=== PATIENT | female | born 1930 | race Caucasian/White ===

== ENCOUNTER 2016-12-11 10:32 | Inpatient (IN) ==
--- NOTE | 2016-12-11 11:23 | Diag Imaging Result Doc PS360 ---
EXAM: FLAT/UPRIGHT ABD/1 VIEW CHEST HISTORY: constipation, weakness TECHNIQUE: Three views COMPARISON: 02/27/2016 FINDINGS: The lungs are well expanded. Heart is mildly enlarged. No pneumonia. Prominent atherosclerosis. No free air beneath the diaphragm. No organomegaly. There is stool throughout the colon. Mild scoliosis with degenerative spine changes. Prominent atherosclerosis. IMPRESSION: 1.Mild cardiomegaly 2.Prominent atherosclerosis 3.Mild constipation Electronically signed by Jose Mcneal 12/11/2016 11:20 AM
[2016-12-11 11:56] LABS: MANUAL DIFF NEEDED? NO
[2016-12-11 12:00] LABS: BASO% 0.1 % (0.0-0.8); EOS# 0.05 X1000 (0.0-0.7); EOS% 0.6 % (0.0-10.0); HEMATOCRIT 43.4 % (37.0-47.0); HEMOGLOBIN 15.2 g/dL (12.0-16.0); LYMPH# 1.27 X1000 (1.2-3.4); LYMPH% 15.9 % (20.5-51.1); MCH 31.7 PG (27-31); MCV 90.6 FL (81-99); MONO# 0.87 X1000 (0.11-0.59); MONO% 10.9 % (1.7-9.3); MPV 8.7 FL (7.4-10.4); NEUT% 72.5 % (42.2-75.2); PLT 247 X1000 (130-400); RBC 4.79 XMIL (4.2-5.4)
[2016-12-11 12:08] LABS: URINE CULTURE NEEDED? NO; URINE MICRO REVIEW NEEDED? NO; URINE SOURCE CLEAN CATCH
[2016-12-11 12:14] LABS: BILIRUBIN URINE NEGATIVE (NEGATIVE); BLOOD URINE NEGATIVE (NEGATIVE); COLOR YELLOW; GLUCOSE URINE >1000 mg/dL (NEGATIVE); LEUKOCYTES URINE NEGATIVE (NEGATIVE); NITRITE URINE NEGATIVE (NEGATIVE); PROTEIN URINE NEGATIVE (NEGATIVE); SP GRAVITY URINE 1.011; TURBIDITY URINE CLEAR (CLEAR); UROBILINOGEN URINE NORMAL (NORMAL)
[2016-12-11 12:16] LABS: UR EPITHELIAL CELLS <10 /HPF (<10); URINE BACTERIA NEGATIVE /HPF; URINE RBC <10 /HPF (<10); URINE WBC <10 /HPF (<10)
[2016-12-11 12:31] LABS: SODIUM 119 mmol/L (136-145)
[2016-12-11 12:32] LABS: AGAP 12; ALBUMIN 4.1 g/dL (3.5-5.0); ALKALINE PHOSPHATASE 80 U/L (32-104); BUN 11 mg/dL (8-22); CHLORIDE 80 mmol/L (98-107); COSMO 239; GOT 34 U/L (10-30); GPT 26 U/L (10-36); POTASSIUM 4.7 mmol/L (3.5-5.1); TCO2 27 mmol/L (25-35); TOTAL BILIRUBIN 0.45 mg/dL (0.20-1.00); TOTAL PROTEIN 6.8 g/dL (6.3-8.3)
[2016-12-11] MEDS ORDERED: NS 1,000 ML IV ONE (13:09)
--- NOTE | 2016-12-11 13:14 | PROVIDER DOCUMENTATION ---
This chart was entered by Leatha Krueger Scribe, acting as scribe for Mariluz Méndez PA. HPI-General Adult - General Chief Complaint: General Adult Stated Complaint: SOB/CONSTIPATION Time Seen by Provider: 12/11/16 10:47 Source: patient Allergies/Adverse Reactions: Patient Allergies Allergy/AdvReac Type Severity Reaction Status Date / Time hydrocodone Allergy ANAPHYLAXIS Verified 12/11/16 11:47 rofecoxib [From Vioxx] Allergy ITCHING Verified 12/11/16 11:47 Sulfa (Sulfonamide Allergy HIVES Verified 12/11/16 11:47 Antibiotics) codeine AdvReac Unknown Verified 12/11/16 11:47 SEAFOOD Allergy Unknown Uncoded 12/11/16 11:47 Home Medications: Home Medication List Medication Instructions Recorded Confirmed Last Taken Type ATORVAstatin [Lipitor] 10 mg PO DAILY 09/26/15 12/11/16 12/11/16 History Alprazolam [Xanax] 0.25 mg PO DAILY 09/26/15 12/11/16 12/11/16 History Aspirin 81 mg PO QHS 09/26/15 12/11/16 12/11/16 History Bisoprolol [Zebeta] 5 mg PO DAILY 09/26/15 12/11/16 12/11/16 History Digoxin 250 mcg PO QHS 09/26/15 12/11/16 12/11/16 History Levothyroxine [Synthroid] 125 microgm PO DAILY 09/26/15 12/11/16 12/11/16 History Pentoxifylline 400 mg PO BID 09/26/15 12/11/16 12/11/16 History Ropinirole [Requip] 1 mg PO HS 09/26/15 12/11/16 12/11/16 History Spironolact/Hydrochlorothiazid 0.5 each PO DAILY 09/26/15 12/11/16 12/11/16 History [Spironolactone-Hctz 25-25 Tab] Multivitamin [One-A-Day Essential] 1 each PO DAILY 02/27/16 12/11/16 12/11/16 History Clopidogrel [Plavix] 75 mg PO DAILY #30 tablet 02/28/16 12/11/16 12/11/16 Rx Benzonatate [Tessalon Perle] 100 mg PO DAILY 12/11/16 12/11/16 12/11/16 History Cyclobenzaprine [Flexeril] 10 mg PO HS 12/11/16 12/11/16 12/11/16 History - History of Present Illness -Gen Adult Nature of Presenting Problems: Pt is a 86 year old female who came to the ED with a cc of constipation for 3 days, complaints of feelings of urinary retention, right sided weakness, and not getting oxygen into her right nostril. Pt does admit that about 3-4 days ago she took Lasix as she felt her legs were swelling and her symptoms of weakness and fatigue started after taking the lasix. Pt is prescribed spironolactone and HCTZ. Location of Pain/Injury: reports: none Pain Radiation: reports: no radiation Quality of Pain: reports: none Severity: reports: mild Onset/Duration: reports: 3 days ago Timing: reports: still present Context/Activities at Onset: reports: none Modifying Factors: improves with: nothing Associated Symptoms: reports: constipation, weakness Similar Symptoms Previously?: No Recently seen or treated by another doctor?: No Review of Systems - Adult - REVIEW OF SYSTEMS - ADULT Constitutional: denies: chills, fever Eyes: reports: no symptoms reported Ears, Nose, Mouth & Throat: reports: no symptoms reported Cardiovascular: denies: chest pain, syncope Respiratory: reports: shortness of breath. denies: cough, pleurisy, wheezing Gastrointestinal: reports: constipation. denies: diarrhea, nausea, vomiting Genitourinary: reports: no symptoms reported Musculoskeletal: reports: no symptoms reported Integumentary: reports: no symptoms reported Neurological: reports: numbness. denies: loss of balance, seizure, tremors Psychiatric: reports: no symptoms reported Endocrine: reports: no symptoms reported Hematologic/Lymphatic: reports: no symptoms reported Allergic/Immunologic: reports: no symptoms reported All Other Systems: Reviewed and Negative Past History - Adult - PAST MEDICAL HISTORY-ADULT Review of Records: reports: Old Records Reviewed, Nursing Assessment Review, Medications Reviewed Major Childhood Illnesses: reports: denies history Cardiovascular: reports: HTN, hyperlipidemia Respiratory: reports: denies history Gastrointestinal: reports: denies history Obstetrical/Gynecological: reports: denies history Genitourinary: reports: denies history Musculoskeletal: reports: denies history Neurological: reports: denies history Endocrine/Immune: reports: denies history Other Conditions: reports: denies history - PRIOR SURGERIES/PROCEDURES Surgical/Procedure History: reports: appendectomy, hysterectomy, , hernia repair - IMMUNIZATION STATUS Childhood Immunizations: See Nurse Assessment Flu Vaccine: See Nurse Assessment - FAMILY HISTORY Family History: reviewed, not pertinent Physical Exam-General - PHYSICAL EXAM-ADULT Initial Vital Signs Reviewed: Yes - CONSTITUTIONAL General Appearance: appears well, alert, no apparent distress, thin - EYES Eyes: PERRL/EOMI, pink conjunctivae - HEAD, EARS, NOSE, MOUTH & THROAT HENMT: normocephalic/atraumatic, moist mucous membranes - NECK Neck: non-tender, full range of motion, supple - RESPIRATORY Respiratory: chest non-tender, lungs clear, normal breath sounds. negative: crackles, rales, rhonchi, stridor, wheezing - CARDIOVASCULAR Cardiovascular: regular rate, rhythm, no edema - GASTROINTESTINAL (ABDOMEN) Abdominal Exam: normal bowel sounds, soft, tenderness (generalized). negative: distended, guarding, rigid, rebound, hernia, mass - MUSCULOSKELETAL Back Exam: normal inspection, no CVA tenderness, no vertebral tenderness Extremity: no pedal edema, no calf tenderness, normal capillary refill Peripheral Pulses: dorsalis-pedis (R): 2+, dorsalis-pedis (L): 2+ - SKIN Integumentary: normal color, normal turgor, warm/dry, other (bilateral heals with erythema and tenderness but skin is intact) - NEUROLOGIC Neurologic: grossly normal, no motor/sensory deficits - PSYCHIATRIC Psych/Mental Status: normal mood/affect, normal thought content, normal thought process, oriented x 3 Progress - PLAN OF CARE/RESULTS Progress/Plan/Lab Results: Vital Signs - 8 hr 12/11/16 10:37 Temperature 98.4 F Pulse Rate 70 Respiratory Rate 20 Blood Pressure 171/88 O2 Sat by Pulse Oximetry 100 Orders Category Date Time Status Saline Loc NOW Care 12/11/16 10:57 Active Use Oxygen.Protocol ORDERED Care 12/11/16 10:57 Active FLAT/UPRIGHT ABD/1 VIEW CHEST [RAD] Stat Exams 12/11/16 10:53 Ordered CBC WITH ELECTRONIC DIFF [HEME] Stat Lab 12/11/16 10:53 Uncollected COMPREHENSIVE METABOLIC PANEL [CHEM] Stat Lab 12/11/16 10:53 Uncollected URINALYSIS W/POSS RFLX CULT-1 [URINALYSIS] Stat Lab 12/11/16 10:53 Uncollected Result Diagrams: 12/11/16 11:42 12/11/16 11:42 - EKG 1 Time of EKG reading by physician:: 11:39 EKG Read and Signed by:: Kalani Muhammad EKG Interpretation (*Must complete 3 of following elements*): Normal Rate: 94 Rhythm: NSR - CONSULTS/PCP/HOSPITALIST Notification #1 *Consult/PCP/Hospitalist*: Shana Time Discussed: 12:43 Consult Disposition: Admit Departure - Departure Date of Disposition Decision: 12/11/16 Time of Disposition Decision: 13:13 DIAGNOSIS: Hyponatremia Disposition: ADMITTED INPATIENT 09 Certified Medical Emergency: Emergent Condition: Stable Referrals and Follow-Ups: Lavelle Saldana MD [Primary Care Provider] - Discharge Education: Smoking Cessation, Tips for Success - Critical Care Note This patient required my direct & personal management of CC.: No Attestation - Physician/ ROXY Attestation Patient care was provided by Advanced Practice Provider:: Yes Advanced Practice Provider:: Mariluz Méndez Advanced Practice Provider documentation review:: The Mid-level provider documentation, treatment plan and medical decision making was reviewed by the physician who agrees with all treatment and medical decision making by the MLP. The physician spent face to face time with patient:: No Advanced Practice Provider documentation review:: Supervising physician onsite and consulted in the evaluation and care of this patient. The physician did not have a face to face encounter with the patient. This chart was documented by the indicated scribe, (Leatha Krueger Scribe) and accurately reflects the services I performed and decisions made by me, Mariluz Méndez PA, as attested by the provider's signature.
[2016-12-11] MEDS ORDERED: LASIX IV ONE (14:16)
--- NOTE | 2016-12-11 15:43 | HISTORY AND PHYSICAL ---
CHIEF COMPLAINT: Weakness and constipation. PRESENT ILLNESS: Ms. Orozco is an 86-year-old woman with a long history of chronic atrial fibrillation, essential hypertension, hypothyroidism, COPD, and peripheral artery disease with bilateral carotid obstruction. She was brought to the emergency room today by her son because of a 2-3 day history of progressive weakness and no bowel movement for 2 days. She normally takes some MiraLAX at home, but this has been ineffective. Several days ago, her ankles and feet were puffy and she took one dose of the an old bottle of Lasix. Evaluation here in the emergency room is remarkable for hyponatremia with a serum sodium of 119. Her previous values have been normal. Progress for chemistry profile and CBC and urinalysis are unremarkable. She is accompanied here in the emergency room by her son. They both agree that she has had no nausea, vomiting, diarrhea, or other GI problems other than the constipation. She has been drinking fluid normally. She does have a history of benign glycosuria. PAST MEDICAL HISTORY: Remarkable for essential hypertension, hypothyroidism, COPD with ongoing nicotine use and chronic atrial fibrillation with benign glycosuria and restless leg syndrome. She also has bilateral partial carotid artery obstructions followed by Dr. Marrero. FAMILY HISTORY: Noncontributory. SOCIAL HISTORY: She is a and lives alone, although her son lives close by and visits daily. She has no other children. She smokes 1/2 to 1 pack of cigarettes per day. Uses home oxygen at night and sometimes during the day. She does not use alcohol. REVIEW OF SYSTEMS: General: No fever, chills, night sweats. Her baseline weight is 88 pounds. HEENT: Vision and hearing are adequate without recent changes. She denies any dental problems or difficulty chewing or swallowing. Respiratory: She has moderate dyspnea on exertion with more than sedentary activities, although she is able to move around her house fairly well. She has occasional dry cough with minimal sputum production and no hemoptysis. Cardiovascular: No history of ischemic heart disease. She has chronic atrial fibrillation, but denies palpitations, dizziness, syncope or near syncope. GI: Her appetite is generally fair as usual and says she has adequate food at home. No melena or bright red blood per rectum. : No dysuria, increased frequency of urination or hematuria. Neurologic: She has restless leg syndrome and frequently has possible neuropathic pain in her feet and ankles. No history of strokes or seizures. Musculoskeletal: Chronic arthritic type pain in her knees. PHYSICAL EXAMINATION: VITAL SIGNS: Temperature 98.4 degrees, blood pressure 171/82, pulse 79, respirations 20, O2 saturation 100% on 2 L. GENERAL APPEARANCE: Cachectic, elderly female with moderate temporal wasting, She is alert and oriented and conversational. SKIN: [place] and warm with adequate turgor. The skin over her fingers at MCP joints is reddened with scattered telangiectasias. Her toes are somewhat purplish and cool. Pedal pulses are diminished, but capillary refill is fair and generally intact. HEENT EXAM: No evidence of trauma. Pupils are equal, round, reactive to light. Oropharynx is benign. NECK: Supple with no jugular venous distention, adenopathy, thyromegaly or bruits. LUNGS: Clear to auscultation and percussion, although breath sounds are somewhat distant. CARDIOVASCULAR: There is nearly regular rhythm with variable S1 and S2. Apical rate is 80. No murmurs or gallops are appreciated. ABDOMEN: Soft, scaphoid and nontender with active bowel sounds. There are no palpable masses. EXTREMITIES: Moderate bony swelling of both knees. There is no edema. NEUROLOGIC EXAM: Mental status is normal. Cranial nerve examination is unremarkable. Gait is not tested. DATABASE: Sodium 119, potassium 4.7, BUN 11, creatinine 0.6. Albumin is normal. SGOT is 34. CBC is normal. Urinalysis is unremarkable, except for large glucose. Serum glucose is 87. ASSESSMENT: 1. Hyponatremia, probably due to thiazide diuretic. 2. Weakness, probably secondary to #1. 3. Constipation, mild to moderate according to x-ray. 4. Bilateral carotid disease. 5. Severe chronic obstructive pulmonary disease. 6. Chronic atrial fibrillation. TREATMENT PLAN: We will hold her diuretic and begin IV normal saline 84 mL/hour. She has been given a dose of Lasix and I have scheduled another one for tomorrow. Daily basic metabolic profiles x3. We will discontinue her digoxin and, if she needs better blood pressure control, begin Cardizem CD 240 at bedtime for both rate control and hypertension. Will watch carefully for bradycardia. I expect it to take 2-3 days to correct her serum sodium, so she will require full admission. cc: Lavelle Saldana MD
[2016-12-11] MEDS: VENTOLIN HFA INH PRN (20:55)
[2016-12-11] MEDS: REQUIP PO SCH (22:35)
[2016-12-11] MEDS: TRENTAL PO SCH (22:35)
[2016-12-11] MEDS: CARDIZEM CD PO SCH (22:35)
[2016-12-11] MEDS: LOVENOX SUBQ SCH (22:35)
[2016-12-11] MEDS: XANAX PO SCH (22:36)
[2016-12-11] MEDS: ASPIRIN PO SCH (22:36)
[2016-12-12] MEDS ORDERED: LASIX IV ONE (06:00)
[2016-12-12 07:03] LABS: AGAP 11; BUN 15 mg/dL (8-22); CHLORIDE 87 mmol/L (98-107); COSMO 259; DIGOXIN 0.5 ng/mL (0.9-2.0); POTASSIUM 3.8 mmol/L (3.5-5.1); SODIUM 129 mmol/L (136-145); TCO2 31 mmol/L (25-35)
[2016-12-12] MEDS: TRENTAL PO SCH ×2 (08:34→22:17)
[2016-12-12] MEDS: MIRALAX PO SCH (08:34)
[2016-12-12] MEDS: ZEBETA PO SCH (08:35)
[2016-12-12] MEDS: SYNTHROID PO SCH (08:35)
[2016-12-12] MEDS: LIPITOR PO SCH (08:35)
[2016-12-12] MEDS: PLAVIX PO SCH (08:35)
[2016-12-12] MEDS: VENTOLIN HFA INH PRN (08:55)
[2016-12-12] MEDS ORDERED: COMMIT BUCCAL PRN (09:39)
[2016-12-12] MEDS: HYDROCORTISONE 1% CREAM TOP SCH ×2 (13:49→22:18)
[2016-12-12] MEDS: NS 1,000 ML IV SCH (13:50)
[2016-12-12] MEDS: ASPIRIN PO SCH (22:17)
[2016-12-12] MEDS: XANAX PO SCH (22:17)
[2016-12-12] MEDS: LOVENOX SUBQ SCH (22:17)
[2016-12-12] MEDS: REQUIP PO SCH (22:17)
[2016-12-12] MEDS: CARDIZEM CD PO SCH (22:18)
[2016-12-13] MEDS: NS 1,000 ML IV SCH (00:19)
[2016-12-13] MEDS: TYLENOL PO PRN ×2 (04:47→16:01)
[2016-12-13 06:54] LABS: AGAP 14; BUN 18 mg/dL (8-22); CALCIUM 9.3 mg/dL (8.8-10.2); CHLORIDE 94 mmol/L (98-107); COSMO 273; POTASSIUM 3.7 mmol/L (3.5-5.1); SODIUM 136 mmol/L (136-145); TCO2 28 mmol/L (25-35)
[2016-12-13] MEDS: VENTOLIN HFA INH PRN (08:42)
[2016-12-13] MEDS: MIRALAX PO SCH (09:41)
[2016-12-13] MEDS: ZEBETA PO SCH (09:42)
[2016-12-13] MEDS: TRENTAL PO SCH ×2 (09:42→21:38)
[2016-12-13] MEDS: SYNTHROID PO SCH (09:42)
[2016-12-13] MEDS: PLAVIX PO SCH (09:42)
[2016-12-13] MEDS: LIPITOR PO SCH (09:42)
[2016-12-13] MEDS: HYDROCORTISONE 1% CREAM TOP SCH ×2 (09:44→21:38)
--- NOTE | 2016-12-13 15:08 | PROGRESS NOTE ---
DATE: 12/13/2016 SUBJECTIVE: The patient's chart was reviewed. In summary, the patient was admitted on 12/11/2016 with weakness and constipation. Full evaluation revealed a significant hyponatremia, with a sodium of 119. Her weakness was likely secondary to her hyponatremia. While hospitalized, her hydrochlorothiazide was held. She has tolerated this very well. Her sodium has trended upwards. The patient's p.o. intake has been adequate. The patient continues to complain of considerable weakness. She denies nausea, vomiting, shortness of breath, or chest discomfort. OBJECTIVE: Vital signs: T-max 98.9 degrees, heart rate 54 to 80, respirations 16 to 20, blood pressure 107 to 144/48 to 69. General: Elderly, in no acute distress. Cardiovascular: Regular rate and rhythm. No significant murmurs, rubs, or gallops. Pulmonary: Clear to auscultation bilaterally. Abdomen: Soft, nontender, nondistended. Positive bowel sounds. Extremities: Moves all extremities well. No significant clubbing, cyanosis, or edema. Dermatologic: Evaluation reveals no evidence of rash. LABORATORY DATA: Sodium 136, potassium 3.7, chloride 94, bicarb 28, BUN 18, creatinine 0.5, glucose 79, calcium 9.3. ASSESSMENT AND PLAN: 1. Hyponatremia - the patient has achieved improvement with holding thiazide diuretic. For now, we will continue her current regimen. 2. Weakness - unfortunately, this is limiting our ability to discharge home. We will consult Practical Nursing Faculty tomorrow to assess for home physical therapy and home health. I anticipate discharge home in the a.m. We will encourage activity for now. 3. Constipation - the patient has achieved improvement while hospitalized. 4. Severe chronic obstructive pulmonary disease - we will continue albuterol. 5. Hypertension/hyperlipidemia/hypothyroidism - we will continue her home medications. 6. Disposition - at this point, the patient continues to require prison care in a hospital setting. We anticipate discharge home tomorrow. cc: MD Lavelle Mann MD
[2016-12-13] MEDS: REQUIP PO SCH (21:38)
[2016-12-13] MEDS: ASPIRIN PO SCH (21:38)
[2016-12-13] MEDS: LOVENOX SUBQ SCH (21:38)
[2016-12-13] MEDS: XANAX PO SCH (21:38)
[2016-12-13] MEDS: CARDIZEM CD PO SCH (21:38)
[2016-12-14 06:41] LABS: AGAP 10; BUN 15 mg/dL (8-22); CALCIUM 8.9 mg/dL (8.8-10.2); CHLORIDE 96 mmol/L (98-107); COSMO 268; SODIUM 134 mmol/L (136-145); TCO2 28 mmol/L (25-35)
[2016-12-14] MEDS ORDERED: DULCOLAX PR ONE (08:28)
[2016-12-14] MEDS: MIRALAX PO SCH (09:22)
[2016-12-14] MEDS: TRENTAL PO SCH ×2 (09:23→20:28)
[2016-12-14] MEDS: ZEBETA PO SCH (09:23)
[2016-12-14] MEDS: PLAVIX PO SCH (09:24)
[2016-12-14] MEDS: LIPITOR PO SCH (09:24)
[2016-12-14] MEDS: SYNTHROID PO SCH (09:24)
--- NOTE | 2016-12-14 15:28 | PROGRESS NOTE ---
DATE: 12/14/2016 SUBJECTIVE: Over the course of the last 24 hours, there have been no significant changes. The patient continues to be very weak. Her p.o. intake is reasonable. She denies symptoms of fevers, chills, nausea, vomiting, shortness of breath, or chest discomfort. She does note having some constipation as well as some left lumbar spine pain. Overall, however, she has improved from admission. OBJECTIVE: Vital signs: Temperature 98.6, heart rate 60-77, respirations 16-20, blood pressure 101-138/58-68. General: Elderly, no acute distress. Cardiovascular: Regular rate and rhythm. No significant murmurs, rubs, or gallops. Pulmonary: Clear to auscultation bilaterally. Abdomen: Soft, nontender, nondistended. Positive bowel sounds. Extremities: Moves all extremities well. No significant clubbing, cyanosis, or edema. Musculoskeletal: Examination reveals pain to palpation of the left paraspinal region. LABORATORY DATA: Sodium 134, potassium 4, chloride 96, bicarb 28, BUN 15, creatinine 0.6, glucose 79, calcium 8.9. ASSESSMENT AND PLAN: 1. Hyponatremia-patient has achieved improvement with discontinuing Dyazide diuretic. We will continue to follow. 2. Profound weakness-we have discussed this in great detail. The patient lives independently and is very concerned with her ability to care for herself at home. We discussed different options, but patient is quite resistant to discharge home and would like to consider rehabilitation. We will consult Marketing Officer to determine if she is a candidate for rehabilitation. We will plan discharge either home or to rehabilitation once able. 3. Left lumbar spine pain-patient has pain in the paraspinal and the sacroiliac joint region. I suspect this is osteoarthritic/muscular. We will continue symptomatic management. 4. Constipation-we will provide patient a Dulcolax suppository today. We will follow this. 5. Severe chronic obstructive pulmonary disease-we will continue patient on albuterol therapy. 6. Hypertension/hyperlipidemia/hypothyroidism-we will continue her home medications. 7. Disposition-at this point, patient continues to require [facility] care in a hospital setting. I anticipate discharge home or to rehab in the near future. cc: MD Lavelle Mann MD
[2016-12-14] MEDS: VENTOLIN HFA INH PRN (15:42)
[2016-12-14] MEDS: HYDROCORTISONE 1% CREAM TOP SCH ×2 (19:02→23:36)
[2016-12-14] MEDS: REQUIP PO SCH (20:27)
[2016-12-14] MEDS: LOVENOX SUBQ SCH (20:28)
[2016-12-14] MEDS: ASPIRIN PO SCH (20:28)
[2016-12-14] MEDS: TYLENOL PO PRN (20:28)
[2016-12-14] MEDS: CARDIZEM CD PO SCH (20:28)
[2016-12-14] MEDS: XANAX PO SCH (20:28)
[2016-12-15] MEDS: VENTOLIN HFA INH PRN ×2 (07:36→21:52)
[2016-12-15] MEDS: ZEBETA PO SCH (08:48)
[2016-12-15] MEDS: PLAVIX PO SCH (08:49)
[2016-12-15] MEDS: MIRALAX PO SCH (08:49)
[2016-12-15] MEDS: LIPITOR PO SCH (08:49)
[2016-12-15] MEDS: SYNTHROID PO SCH (08:49)
[2016-12-15] MEDS: TRENTAL PO SCH ×2 (08:49→22:26)
[2016-12-15] MEDS: HYDROCORTISONE 1% CREAM TOP SCH ×2 (08:50→22:27)
[2016-12-15] MEDS: TYLENOL PO PRN ×2 (09:03→22:27)
[2016-12-15] MEDS: CARDIZEM CD PO SCH (22:26)
[2016-12-15] MEDS: REQUIP PO SCH (22:26)
[2016-12-15] MEDS: LOVENOX SUBQ SCH (22:27)
[2016-12-15] MEDS: ASPIRIN PO SCH (22:27)
[2016-12-15] MEDS: XANAX PO SCH (22:27)
[2016-12-16] MEDS: VENTOLIN HFA INH PRN ×2 (03:25→07:43)
[2016-12-16 07:37] VITALS: BP 125/56
[2016-12-16] MEDS: HYDROCORTISONE 1% CREAM TOP SCH (09:27)
[2016-12-16] MEDS: TRENTAL PO SCH (09:28)
[2016-12-16] MEDS: PLAVIX PO SCH (09:28)
[2016-12-16] MEDS: ZEBETA PO SCH (09:28)
[2016-12-16] MEDS: MIRALAX PO SCH (09:29)
[2016-12-16] MEDS: SYNTHROID PO SCH (09:29)
[2016-12-16] MEDS: LIPITOR PO SCH (09:29)
--- NOTE | 2016-12-16 12:59 | DISCHARGE SUMMARY ---
ADMISSION DATE: 12/11/2016 DISCHARGE DATE: 12/16/2016 FINAL DIAGNOSES: 1. Hyponatremia. 2. Generalized muscle weakness secondary to #1. 3. Constipation. 4. Bilateral carotid atherosclerosis. 5. Severe chronic obstructive pulmonary disease. 6. Chronic atrial fibrillation. PRESENT ILLNESS: Mrs. Orozco is an 86-year-old woman with a long history of essential hypertension, hypothyroidism, COPD, peripheral artery disease. She was brought to the emergency room because of a 2-3 day history of progressive weakness. Admission lab work documented hyponatremia with a serum sodium of 119. She has no history of nausea, vomiting, or diarrhea. PHYSICAL EXAMINATION: Vital Signs: Unremarkable with a blood pressure 171/82. General: She appeared somewhat cachectic with moderate temporal wasting. Skin: Was pink and warm with adequate turgor. Neck: Supple. No JVD. Lungs: Clear. Cardiac: Irregularly irregular rhythm without murmurs or gallops. Abdomen: Soft, scaphoid, and nontender with active bowel sounds. HOSPITAL COURSE: Her medications are reviewed and the thiazide diuretic was felt to be the most likely contributing factor to her hyponatremia. This was stopped. Her blood pressure medicine was changed to Cardizem CD and it was felt that she would no longer need the Lanoxin for rate control for atrial fib. She was begun on some MiraLAX daily for constipation. She was given intravenous normal saline and her serum sodium corrected over the next 48-72 hours. However, she remained somewhat weak and as she lives alone she felt very hesitant to return home with only minimal support from her son. She requested subacute rehab and today a bed is available at [facility]. She has complained somewhat intermittently of some left inguinal pain and had a slight rash there but it did not appear typical for shingles. I could feel no masses and did not think she had a hernia. Perhaps this is referred pain from left hip arthritis. Due to her age I feel nonsteroidals are not optimal and prefer to treat this with Tylenol only. She is discharged to [facility] where I will continue to follow her. DISCHARGE MEDICATIONS: Cardizem CD 240 mg at bedtime, nicotine lozenges 4 mg buccal as needed, may keep at bedside, MiraLAX 17 g daily in any liquid, acetaminophen 650 mg q.6 hours p.r.n. for pain, Ventolin inhaler 2 puffs 4 times a day as needed for shortness of breath, aspirin 81 mg at bedtime, Xanax 0.25 mg daily, pentoxifylline 400 mg twice a day, bisoprolol 5 mg daily, atorvastatin 10 mg at bedtime, levothyroxine 125 mcg daily, ropinirole 1 mg at bedtime for restless legs syndrome, multivitamin 1 daily, and clopidogrel 75 mg daily to prevent strokes. cc: Lavelle Saldana MD
== END 2016-12-16 16:25 ==
LOC: ED 10:32 → EDIPHOLD 15:10 → 4N 17:41
PROVIDERS: ADMIT Internal Medicine; ATTEND Internal Medicine

== ENCOUNTER 2016-12-29 00:25 | Inpatient (IN) ==
[~2016-12-29 00:25] MED LIST: DUONEB (A & A) INH ONE
[2016-12-29 00:33] LABS: MANUAL DIFF NEEDED? NO
[2016-12-29 00:35] LABS: BASO% 0.1 % (0.0-0.8); HEMATOCRIT 38.3 % (37.0-47.0); HEMOGLOBIN 11.8 g/dL (12.0-16.0); IMM GRAN# 0.09 X1000 (0.0-0.04); IMM GRAN% 0.7 % (0.0-0.5); LYMPH# 0.98 X1000 (1.2-3.4); LYMPH% 7.5 % (20.5-51.1); MCH 30.8 PG (27-31); MCHC 30.8 g/dL (33-37); MONO# 1.25 X1000 (0.11-0.59); MONO% 9.6 % (1.7-9.3); MPV 9.5 FL (7.4-10.4); NEUT% 82.1 % (42.2-75.2); PLT 401 X1000 (130-400); RBC 3.83 XMIL (4.2-5.4)
[2016-12-29] MEDS ORDERED: DUONEB (A & A) INH ONE (00:39)
[2016-12-29] MEDS ORDERED: SOLU-MEDROL IV ONE (00:40)
[2016-12-29] MEDS ORDERED: MAGNESIUM SULFATE 1 GM/D5W 1 GM/100 ML IVPB IV ONE (00:46)
[2016-12-29] MEDS ORDERED: LASIX IV ONE (00:50)
[2016-12-29 00:51] LABS: ALLEN TEST YES; BE 10.9 mmoll (-3.0-3.0); BLOOD TYPE ARTERIAL; DRAW SITE R BRACHIAL; METHB 0.9 % (0.0-1.5); O2(CT) 15.6 mL/dL (15.0-23.0); PO2(98.6) 68 mmHg (60-100); SAMPLE BLOOD; SAO2 91.6 % (95.0-100.0); THB 12.3 g/dL (11.5-17.4); pH(98.6) 7.21 (7.35-7.45)
[2016-12-29 00:53] LABS: MODALITY CANNULA; PCO2(98.6) 117 mmHg (35-45)
[2016-12-29] MEDS ORDERED: NITROGLYCERIN TOP ONE (01:04)
[2016-12-29 01:07] LABS: URINE CULTURE NEEDED? NO; URINE MICRO REVIEW NEEDED? NO; URINE SOURCE CATH
[2016-12-29 01:09] LABS: BILIRUBIN URINE NEGATIVE (NEGATIVE); BLOOD URINE NEGATIVE (NEGATIVE); COLOR YELLOW; GLUCOSE URINE >1000 mg/dL (NEGATIVE); LEUKOCYTES URINE NEGATIVE (NEGATIVE); NITRITE URINE NEGATIVE (NEGATIVE); PROTEIN URINE TRACE mg/dL (NEGATIVE); SP GRAVITY URINE 1.024; TURBIDITY URINE CLEAR (CLEAR); UROBILINOGEN URINE NORMAL (NORMAL)
[2016-12-29 01:10] LABS: AGAP 6; ALBUMIN 3.9 g/dL (3.5-5.0); ALKALINE PHOSPHATASE 112 U/L (32-104); BUN 15 mg/dL (8-22); CALCIUM 10.3 mg/dL (8.8-10.2); CHLORIDE 96 mmol/L (98-107); COSMO 282; GOT 33 U/L (10-30); GPT 43 U/L (10-36); POTASSIUM 4.4 mmol/L (3.5-5.1); SODIUM 140 mmol/L (136-145); TCO2 38 mmol/L (25-35); TOTAL BILIRUBIN 0.17 mg/dL (0.20-1.00); TOTAL PROTEIN 6.9 g/dL (6.3-8.3)
[2016-12-29 01:10] LABS: UR EPITHELIAL CELLS <10 /HPF (<10); URINE BACTERIA NEGATIVE /HPF; URINE RBC <10 /HPF (<10); URINE WBC <10 /HPF (<10)
[2016-12-29 01:21] LABS: INR 0.96; PROTIME 10.1 Seconds (9.2-11.7); PTT 25.9 Seconds (22.0-36.0)
[2016-12-29 01:51] LABS: ALLEN TEST YES; BE 14.7 mmoll (-3.0-3.0); BLOOD TYPE ARTERIAL; DRAW SITE R RADIAL; METHB 0.5 % (0.0-1.5); O2(CT) 15.6 mL/dL (15.0-23.0); PO2(98.6) 107 mmHg (60-100); SAMPLE BLOOD; SAO2 96.7 % (95.0-100.0); THB 11.5 g/dL (11.5-17.4); pH(98.6) 7.27 (7.35-7.45)
[2016-12-29 01:53] LABS: MODALITY BI PAP; PCO2(98.6) 99 mmHg (35-45)
[2016-12-29] MEDS ORDERED: ZOFRAN IV PRN (03:14)
[2016-12-29] MEDS ORDERED: COMMIT BUCCAL PRN (03:14)
[2016-12-29] MEDS ORDERED: XANAX PO ONE ×2 (03:54→20:57)
[2016-12-29 04:51] LABS: ALLEN TEST YES; BE 14.6 mmoll (-3.0-3.0); BLOOD TYPE ARTERIAL; DRAW SITE R RADIAL; METHB 0.5 % (0.0-1.5); O2(CT) 21.3 mL/dL (15.0-23.0); PO2(98.6) 116 mmHg (60-100); SAMPLE BLOOD; THB 15.7 g/dL (11.5-17.4); pH(98.6) 7.32 (7.35-7.45)
[2016-12-29 04:52] LABS: MODALITY BI PAP; PCO2(98.6) 89 mmHg (35-45)
[2016-12-29] MEDS: PROTONIX IV SCH (06:22)
[2016-12-29] MEDS: LOVENOX SUBQ SCH (06:23)
[2016-12-29] MEDS: SODIUM CHLORIDE 0.9% INJ SCH (06:23)
[2016-12-29] MEDS: SYNTHROID PO SCH (06:36)
[2016-12-29] MEDS ORDERED: XANAX PO SCH (09:00)
[2016-12-29] MEDS ORDERED: LASIX IV SCH (09:00)
[2016-12-29] MEDS: MIRALAX PO SCH (09:14)
[2016-12-29] MEDS: LASIX IV SCH (09:15)
[2016-12-29] MEDS: ZEBETA PO SCH (09:15)
[2016-12-29] MEDS: CARDIZEM CD PO SCH (09:15)
[2016-12-29] MEDS: THERA M PLUS PO SCH (09:15)
[2016-12-29] MEDS: LIPITOR PO SCH (09:15)
[2016-12-29] MEDS: PLAVIX PO SCH (09:15)
[2016-12-29] MEDS: TRENTAL PO SCH ×2 (09:16→20:20)
[2016-12-29] MEDS: ALBUTEROL NEB INH SCH ×3 (11:03→21:07)
[2016-12-29] MEDS ORDERED: SUDAFED PO PRN (20:02)
[2016-12-29] MEDS: ASPIRIN PO SCH (20:20)
[2016-12-29] MEDS: REQUIP PO SCH (20:20)
[2016-12-29] MEDS: ROZEREM PO SCH (21:45)
[2016-12-30] MEDS: ALBUTEROL NEB INH SCH ×4 (03:23→19:28)
[2016-12-30 05:26] LABS: ALLEN TEST YES; BE 20.8 mmoll (-3.0-3.0); BLOOD TYPE ARTERIAL; DRAW SITE R RADIAL; METHB 0.5 % (0.0-1.5); O2(CT) 17.6 mL/dL (15.0-23.0); PO2(98.6) 63 mmHg (60-100); SAMPLE BLOOD; SAO2 91.7 % (95.0-100.0); THB 13.9 g/dL (11.5-17.4); pH(98.6) 7.37 (7.35-7.45)
[2016-12-30 05:27] LABS: MODALITY CANNULA; PCO2(98.6) 89 mmHg (35-45)
[2016-12-30 06:31] LABS: BASO% 0.1 % (0.0-0.8); HEMATOCRIT 36.1 % (37.0-47.0); HEMOGLOBIN 11.2 g/dL (12.0-16.0); IMM GRAN# 0.05 X1000 (0.0-0.04); IMM GRAN% 0.3 % (0.0-0.5); LYMPH# 0.76 X1000 (1.2-3.4); LYMPH% 4.5 % (20.5-51.1); MANUAL DIFF NEEDED? YES; MCH 30.7 PG (27-31); MCV 98.9 FL (81-99); MONO# 1.52 X1000 (0.11-0.59); MONO% 9.1 % (1.7-9.3); MPV 9.7 FL (7.4-10.4); PLT 383 X1000 (130-400); RBC 3.65 XMIL (4.2-5.4)
[2016-12-30 06:34] LABS: AGAP 7; BUN 19 mg/dL (8-22); CALCIUM 9.7 mg/dL (8.8-10.2); CHLORIDE 95 mmol/L (98-107); COSMO 292; POTASSIUM 4.2 mmol/L (3.5-5.1); SODIUM 145 mmol/L (136-145); TCO2 43 mmol/L (25-35)
[2016-12-30] MEDS: SYNTHROID PO SCH (06:39)
[2016-12-30] MEDS: PROTONIX IV SCH (06:39)
[2016-12-30] MEDS: SODIUM CHLORIDE 0.9% INJ SCH (06:40)
[2016-12-30] MEDS: LOVENOX SUBQ SCH (06:40)
[2016-12-30 06:53] LABS: BANDS 3 % (0-1); LYMPHS 5 % (21-51); MONO 3 % (1-9)
[2016-12-30] MEDS ORDERED: LEVAQUIN 500 MG/D5W 500 MG/100 ML IVPB IV SCH (08:15)
[2016-12-30] MEDS: THERA M PLUS PO SCH (09:22)
[2016-12-30] MEDS: LASIX IV SCH ×2 (09:22→19:57)
[2016-12-30] MEDS: MIRALAX PO SCH (09:22)
[2016-12-30] MEDS: ZEBETA PO SCH (09:22)
[2016-12-30] MEDS: CARDIZEM CD PO SCH (09:22)
[2016-12-30] MEDS: LIPITOR PO SCH (09:22)
[2016-12-30] MEDS: PLAVIX PO SCH (09:22)
[2016-12-30] MEDS: TRENTAL PO SCH ×2 (09:22→23:14)
[2016-12-30] MEDS ORDERED: TYLENOL PO PRN ×2 (10:16→14:33)
[2016-12-30] MEDS ORDERED: FENTANYL IV PRN (18:05)
[2016-12-30] MEDS: DIAMOX IV SCH (20:02)
[2016-12-30] MEDS: STERILE WATER INJ. INJ PRN (20:04)
[2016-12-30] MEDS: FENTANYL IV PRN ×2 (20:20→22:57)
[2016-12-30] MEDS: SODIUM CHLORIDE IV PRN ×2 (20:20→22:57)
[2016-12-30] MEDS: ROZEREM PO SCH (22:10)
[2016-12-30] MEDS: REQUIP PO SCH (22:10)
[2016-12-30] MEDS: ASPIRIN PO SCH (22:15)
[2016-12-31] MEDS: DIAMOX IV SCH (02:34)
[2016-12-31] MEDS: LASIX IV SCH (02:34)
[2016-12-31] MEDS: STERILE WATER INJ. INJ PRN (02:46)
[2016-12-31] MEDS: ALBUTEROL NEB INH SCH (03:26)
[2016-12-31] MEDS: SODIUM CHLORIDE IV PRN (06:00)
[2016-12-31] MEDS: FENTANYL IV PRN (06:00)
[2016-12-31] MEDS: LOVENOX SUBQ SCH (06:15)
[2016-12-31 06:23] LABS: AGAP 8; BUN 30 mg/dL (8-22); CALCIUM 10.1 mg/dL (8.8-10.2); CHLORIDE 93 mmol/L (98-107); COSMO 297; MAGNESIUM 2.4 mg/dL (1.5-2.7); POTASSIUM 4.4 mmol/L (3.5-5.1); SODIUM 146 mmol/L (136-145); TCO2 45 mmol/L (25-35)
[2016-12-31] MEDS: SYNTHROID PO SCH (06:30)
[2016-12-31 08:01] VITALS: BP 42/20
== END 2016-12-31 08:00 | disposition expired ==
LOC: ED 00:25 → SUATTDRO 02:38 → SUPCPDRO 02:38 → ICU 02:38 → 4N 12-30 14:32
PROVIDERS: ADMIT Internal Medicine; ATTEND Internal Medicine